=== PATIENT | male | born 1960 ===

== ENCOUNTER 2022-01-22 14:51 | Emergency (ER) | payer SELFPAY ==
[2022-01-22 15:19] VITALS: BP 133/80; PULSE 90; O2SAT 97
[2022-01-22 15:24] VITALS: BP 143/94; PULSE 88; RESP 16; TEMP 36.6; O2SAT 99; BMI 26.9
== END 2022-01-22 18:02 | disposition left against medical advice (07) ==
PROVIDERS: Emergency Provider Emergency Medicine
DX: R07.89 Other chest pain (principal)
CPT/HCPCS: 99281